=== PATIENT | female | born 2005 ===

== ENCOUNTER 2024-11-05 17:47 | Observation (INO) | payer BC, SELFPAY ==
[2024-11-05 17:51] VITALS: BP 136/82; BMI 23.8
== END 2024-11-05 18:36 | disposition home or self-care (01) ==
LOC: LDRP 17:47
PROVIDERS: ADMITTING PHYSICIAN Obstetrics & Gynecology
DX: O36.8320 Maternal care for abnormalities of the fetal heart rate or rhythm, second trimester, not applicable or unspecified (principal); Z3A.27 27 weeks gestation of pregnancy; Z88.8 Allergy status to other drugs, medicaments and biological substances; Z91.018 Allergy to other foods
CPT/HCPCS: 59899; G0378

== ENCOUNTER → 2025-01-31 17:09 | Outpatient (REF) | payer BC, SELFPAY | LOC: PNTC 17:09 | PROVIDERS: ATTENDING PHYSICIAN Student in an Organized Health Care Education/Training Program | DX: O36.8190 Decreased fetal movements, unspecified trimester, not applicable or unspecified (principal) | CPT/HCPCS: 59025 ==

== ENCOUNTER 2025-02-04 18:57 | Inpatient (IN) | payer BC, SELFPAY ==
[2025-02-04 19:09] VITALS: BP 109/73; BMI 26.5
[2025-02-04 19:57] LABS: % Basophils 0.3 % (0-2); % Eosinophils 0.7 % (0-6); % Immature Granulocytes 2.1 % (0-0.5); % Lymphocytes 25.1 % (20.5-51.1); % Monocytes 7.1 % (1.7-9.3); % Neutrophils 64.7 % (42.2-75.2); Absolute Eosinophils 0.1 10^3/uL (0-0.7); Absolute Immature Granulocytes 0.2 10^3/uL (0-0.05); Absolute Lymphocytes 2.2 10^3/uL (1.2-3.4); Absolute Monocytes 0.6 10^3/uL (0.1-0.6); Absolute Neutrophils 5.6 10^3/uL (1.4-6.5); Hematocrit 31.4 % (37.0-47.0); Hemoglobin 10.5 g/dL (12.0-16.0); Mean Corp Hgb Conc. 33.4 g/dL (33.0-37.0); Mean Corpuscular Hgb 28.5 pg (27.0-31.0); Mean Corpuscular Volume 85.3 fL (81.0-99.0); Mean Platelet Volume 11.3 fL (7.4-10.4); Nucleated Red Blood Cells % 0 %; Platelet Count 175 10^3/uL (130-400); Red Blood Cell Count 3.68 10^6/uL (4.20-5.40); Red Cell Dist. Width 13.5 % (11.5-14.5); White Blood Cell Count 8.6 10^3/uL (4.8-10.8)
[2025-02-04] MEDS: CYTOTEC 50 MICROGRAM VAG (20:04)
[2025-02-04] MEDS: LR 1000 IV (22:16)
[2025-02-04] MEDS: STADOL 1 MG IV (22:48)
[2025-02-05] MEDS: FENTANYL/BUPIVACAINE 100 EPIDURAL ×2 (00:10→07:25)
[2025-02-05] MEDS: SUBLIMAZE 100 MCG EPIDURAL (00:10)
[2025-02-05] MEDS: LR 1000 IV ×3 (00:24→05:42)
[2025-02-05] MEDS: PITOCIN 30 UNITS/NSS 500 ML IV ×2 (02:57→10:45)
[2025-02-05 08:05] LABS: Glucose - Point of Care 85 mg/dl (70-99)
[2025-02-05] MEDS: ZOFRAN 4 MG IV (08:29)
[2025-02-05] MEDS: BICITRA 30 ML PO (10:11)
[2025-02-05] MEDS: TYLENOL 1000 MG PO (10:11)
[2025-02-05] MEDS: ANCEF 10 IV (10:12)
[2025-02-05] MEDS: ZITHROMAX INFUSION 250 IV (10:30)
[2025-02-05 11:49] LABS: Cord VBG B.E. - POC -4.7 mmol/L; Cord VBG HCO3 - POC 21 mmol/L; Cord VBG O2 Sat % - POC 27.5 %; Cord VBG pCO2 - POC 40 mmHg; Cord VBG pH - POC 7.33; Cord VBG pO2 - POC 20 mmHg
[2025-02-05] MEDS: TORADOL 15 MG IV ×3 (13:01→23:26)
[2025-02-05] MEDS: PRENATAL PLUS PO (22:30)
[2025-02-06] MEDS: TYLENOL 650 MG PO ×4 (04:13→22:50)
[2025-02-06] MEDS: TORADOL 15 MG IV (05:33)
[2025-02-06 05:53] LABS: Hematocrit 25.3 % (37.0-47.0); Hemoglobin 8.5 g/dL (12.0-16.0); Mean Corp Hgb Conc. 33.6 g/dL (33.0-37.0); Mean Corpuscular Hgb 28.7 pg (27.0-31.0); Mean Corpuscular Volume 85.5 fL (81.0-99.0); Mean Platelet Volume 11.9 fL (7.4-10.4); Platelet Count 164 10^3/uL (130-400); Red Blood Cell Count 2.96 10^6/uL (4.20-5.40); Red Cell Dist. Width 13.7 % (11.5-14.5)
--- NOTE | 2025-02-06 07:18 | W.PN.ANS.POP ---
Anesthesia Post Operative
- Anesthesia Post Op Note
Vital Signs Stable-See Nursing Note: Yes
Airway Patent: Yes
Adequate Pain Control: Yes
Change in Mental Status: No
Current Postoperative Nausea & Vomiting: No
Anesthesia Complications: No
General Anesthetic Recall: No
Unplanned Admission: No
Post Op Hydration Adequate: Yes
- -
Pt requested do not disturb (as per sign on door), spoke to RN- pt doing well.
[2025-02-06] MEDS: PRENATAL PLUS 1 TABLET PO ×2 (08:38→20:05)
[2025-02-06] MEDS: SENOKOT-S 1 TABLET PO (08:39)
[2025-02-06] MEDS: MOTRIN 600 MG PO ×2 (12:46→17:49)
[2025-02-06] MEDS: FEOSOL 325 MG PO (12:47)
[2025-02-06 13:08] LABS: Cord ABG B.E. - POC -4.6 mmol/L; Cord ABG HCO3 - POC 22 mmol/L; Cord ABG pCO2 - POC 47 mmHg; Cord ABG pH - POC 7.29; Cord ABG pO2 - POC < 18 mmHg
[2025-02-06] MEDS: MYLICON 80 MG PO (23:07)
[2025-02-07] MEDS: MOTRIN 600 MG PO ×5 (00:07→23:50)
[2025-02-07] MEDS: TYLENOL 650 MG PO ×3 (06:14→23:50)
[2025-02-07] MEDS: SENOKOT-S 1 TABLET PO (08:30)
[2025-02-07] MEDS: PRENATAL PLUS 1 TABLET PO (08:30)
[2025-02-07] MEDS: FEOSOL 325 MG PO (08:30)
[2025-02-07] MEDS: MYLICON 80 MG PO ×2 (08:30→23:56)
[2025-02-07 11:59] LABS: Syphilis/T. pallidum Ab Reflex Negative (Negative)
[2025-02-07] MEDS: PRENATAL PLUS PO (19:49)
[2025-02-08] MEDS: TYLENOL 650 MG PO ×2 (06:01→13:14)
[2025-02-08] MEDS: MOTRIN 600 MG PO ×2 (06:01→13:15)
[2025-02-08] MEDS: MYLICON 80 MG PO (07:41)
[2025-02-08] MEDS: PRENATAL PLUS 1 TABLET PO (07:41)
[2025-02-08] MEDS: SENOKOT-S 1 TABLET PO (07:41)
[2025-02-08] MEDS: FEOSOL 325 MG PO (07:42)
== END 2025-02-08 13:27 | disposition home or self-care (01) | DRG 788 ==
LOC: LDRP 18:57
PROVIDERS: Obstetrics & Gynecology; ADMITTING PHYSICIAN Obstetrics & Gynecology
PROC: 3E0P7VZ Introduction of Hormone into Female Reproductive, Via Natural or Artificial Opening (ICD-10-PCS; 2025-02-04)
PROC: 3E033VJ Introduction of Other Hormone into Peripheral Vein, Percutaneous Approach (ICD-10-PCS; 2025-02-04)
PROC: 3E0E77Z Introduction of Electrolytic and Water Balance Substance into Products of Conception, Via Natural or Artificial Opening (ICD-10-PCS; 2025-02-05)
PROC: 10H07YZ Insertion of Other Device into Products of Conception, Via Natural or Artificial Opening (ICD-10-PCS; 2025-02-05)
PROC: 10D00Z1 Extraction of Products of Conception, Low, Open Approach (ICD-10-PCS; 2025-02-05)
DX: O48.0 Post-term pregnancy (principal); O76 Abnormality in fetal heart rate and rhythm complicating labor and delivery; Z3A.40 40 weeks gestation of pregnancy; Z37.0 Single live birth; H31.8 Other specified disorders of choroid; O90.81 Anemia of the puerperium; D64.9 Anemia, unspecified; Z88.8 Allergy status to other drugs, medicaments and biological substances; Z91.018 Allergy to other foods
CPT/HCPCS: 88307; 82962; 85025; 85027; 86780; 86850; 86900; 86901